=== PATIENT | female | born 1955 | race Caucasian/White ===

== ENCOUNTER → 2018-06-02 12:42 | Outpatient (CLI) | payer OTHER, SELFPAY | PROVIDERS: Family Provider Physician Assistant; PCP Physician Assistant; Visit Provider Physician Assistant | DX: M85.852 Other specified disorders of bone density and structure, left thigh (principal); Z78.0 Asymptomatic menopausal state; E28.39 Other primary ovarian failure; E07.9 Disorder of thyroid, unspecified | CPT/HCPCS: 77080 ==

== ENCOUNTER → 2018-11-13 08:36 | Outpatient (CLI) | payer OTHER, SELFPAY ==
--- NOTE | 2018-11-13 08:38 | DI.MRI.S_ITS ---
PROCEDURE: MR LUMBAR SPINE WO CON INDICATIONS: Right low back pain with radiculopathy on right TECHNIQUE: Noncontrast sagittal T1 spin echo and T2 fast echo, sagittal STIR, axial T1 and T2 fast spin echo through the lumbar spine. In cases with scoliosis, additional coronal T2 fast spin echo may be performed. COMPARISON: None. FINDINGS: Image quality: Excellent. Alignment and Curvature: No plain films are available for comparison, for numbering purposes. Thus, for the purposes of this examination, 5 lumbar type vertebral bodies will be presumed, as denoted on the montage panel. This should be confirmed and correlated with plain films, prior to any lumbar spinal intervention.There is normal bony alignment. Bone Marrow: Marrow is of normal overall signal. No acute vertebral body compression fractures. Spinal Cord: Conus medullaris terminates at the lower L1 level. Visualized cord demonstrates normal signal and size. Paraspinous Soft Tissues: No paravertebral masses. L1-L2: Normal appearance. L2-L3: Mild disc desiccation. Mild diffuse disc bulge. Mild facet and ligamentum flavum hypertrophy. Mild epidural lipomatosis. Mild canal stenosis. No foraminal stenosis. L3-L4: Mild disc desiccation. Mild diffuse disc bulge. Mild facet and ligamentum flavum hypertrophy. Mild epidural lipomatosis. Mild canal stenosis. Mild subarticular foraminal stenosis bilaterally. L4-L5: Mild disc desiccation. Mild diffuse disc bulge. Mild facet and ligamentum flavum hypertrophy. Mild epidural lipomatosis. Mild canal stenosis. Mild subarticular foraminal stenosis bilaterally. L5-S1: Mild disc desiccation. Mild diffuse disc bulge with superimposed broad-based small left posterior lateral protrusion. Mild facet and ligament flavum hypertrophy bilaterally. Mild canal stenosis. Mild bilateral foraminal stenosis. The disc protrusion abuts the left S1 nerve root within the lateral recess, but does not appear to compress it, nor deviate it. IMPRESSION: 1. Multilevel degenerative disc and facet disease, as well as ligamentum flavum hypertrophy and epidural lipomatosis. 2. 5 lumbar type vertebral bodies were presumed for the current report. Plain films of the lumbar spine are recommended for confirmation, prior to any lumbar spinal intervention. 3. Mild multilevel canal and foraminal stenoses. 4. L5-S1 disc protrusion which abuts the left S1 nerve root, but does not appear to compress it, nor deviate it. Recommend correlation with clinical symptoms to ascertain relevance of this finding. Dictated by: Meka Sultana M.D. on 11/15/2018 at 11:25 Approved by: Meka Sultana M.D. on 11/15/2018 at 11:30
== END ==
PROVIDERS: Family Provider Physical Medicine & Rehabilitation; PCP Physician Assistant; Visit Provider Physician Assistant
DX: M51.16 Intervertebral disc disorders with radiculopathy, lumbar region (principal); M51.17 Intervertebral disc disorders with radiculopathy, lumbosacral region; M48.061 Spinal stenosis, lumbar region without neurogenic claudication; M48.07 Spinal stenosis, lumbosacral region; E88.2 Lipomatosis, not elsewhere classified
CPT/HCPCS: 72148

== ENCOUNTER → 2018-11-26 06:53 | Outpatient (CLI) | payer OTHER, SELFPAY ==
[2018-11-26 08:28] LABS: Alanine Aminotransferase 17 IU/L (9-52); Albumin 3.9 g/dL (3.5-5.0); Albumin Globulin Ratio 1.3 (1.0-2.8); Alkaline Phosphatase 41 U/L (38-126); Aspartate Aminotransferase 24 IU/L (14-36); Bilirubin Total 0.6 mg/dL (0.2-1.3); Blood Urea Nitrogen 25 mg/dL (7-17); Calcium 9.1 mg/dL (8.4-10.2); Carbon Dioxide 29 mmol/L (22-32); Chloride 106 mmol/L (98-107); Cholesterol 166 mg/dL (140-199); Estimated Glomerular Filt Rate 55.8 mL/min (>60); Glucose 105 mg/dL (80-110); HDL Cholesterol 47 mg/dL (40-60); HEMOLYSIS < 15 (0-50); LDL Cholesterol Calculated 97 mg/dL (<100); Potassium 4.5 mmol/L (3.4-5.1); Sodium 141 mmol/L (137-145); Total Protein 6.9 g/dL (6.3-8.2); Triglycerides 110 mg/dL (35-150)
[2018-11-26 08:53] LABS: Thyroid Stimulating Hormone 2.46 uIU/mL (0.47-4.68)
== END ==
PROVIDERS: Family Provider Physical Medicine & Rehabilitation; PCP Physician Assistant; Visit Provider Physician Assistant
DX: Z00.00 Encounter for general adult medical examination without abnormal findings (principal); E03.9 Hypothyroidism, unspecified
CPT/HCPCS: 36415; 80053; 80061; 84443

== ENCOUNTER → 2019-01-20 08:08 | Outpatient (CLI) | payer OTHER, SELFPAY ==
--- NOTE | 2019-01-20 08:09 | DI.MG.S_ITS ---
BILATERAL DIGITAL SCREENING MAMMOGRAM 3D/2D WITH CAD: 01/20/2019 CLINICAL: Routine screening. Family history of breast cancer. Comparison is made to exams dated: 06/06/2017 mammogram, 05/13/2016 mammogram, and 08/04/2014 mammogram - [facility]. The tissue of both breasts is heterogeneously dense. This may lower the sensitivity of mammography. Current study was also evaluated with a Computer Aided Detection (CAD) system. No significant masses, calcifications, or other findings are seen in either breast. There has been no significant interval change. IMPRESSION: NEGATIVE There is no mammographic evidence of malignancy. A 1 year screening mammogram is recommended. This exam was interpreted at Station ID: [id number]. NOTE: For mammograms, a report in lay terms will be sent to the patient. Approximately 15% of breast malignancies will not be visualized mammographically. In the management of a palpable breast mass, a negative mammogram must not discourage biopsy of a clinically suspicious lesion. Electronically Signed By: Rhea pearson/donn:01/20/2019 11:10:55 letter sent: Normal Exam ACR BI-RADS Category 1: Negative 3341F
== END ==
PROVIDERS: Family Provider Physical Medicine & Rehabilitation; PCP Physician Assistant; Visit Provider Physician Assistant
DX: Z12.31 Encounter for screening mammogram for malignant neoplasm of breast (principal); Z80.3 Family history of malignant neoplasm of breast
CPT/HCPCS: 77063; 77067

== ENCOUNTER → 2020-03-08 16:04 | Outpatient (CLI) | payer MEDICARE, SELFPAY ==
[2020-03-08] MEDS: COVID-19 VACC #1, MRNA(MOD) 100 MCG/0.5 ML VIAL IM (16:10)
== END ==
PROVIDERS: Family Provider Physical Medicine & Rehabilitation; PCP Family Medicine; Visit Provider Internal Medicine
DX: Z23 Encounter for immunization (principal)
CPT/HCPCS: 0011A; 91301

== ENCOUNTER → 2020-03-15 10:38 | Outpatient (CLI) | payer MEDICARE, SELFPAY ==
--- NOTE | 2020-03-15 | DI.MG.S_ITS ---
BILATERAL DIGITAL SCREENING MAMMOGRAM 3D/2D WITH CAD: 03/15/2020 CLINICAL: Routine screening. Family history of breast cancer. Comparison is made to exams dated: 01/20/2019 mammogram, 06/06/2017 mammogram, and 05/13/2016 mammogram - [facility]. The tissue of both breasts is heterogeneously dense. This may lower the sensitivity of mammography. Current study was also evaluated with a Computer Aided Detection (CAD) system. No significant masses, calcifications, or other findings are seen in either breast. There has been no significant interval change. IMPRESSION: NEGATIVE There is no mammographic evidence of malignancy. A 1 year screening mammogram is recommended. This exam was interpreted at Station ID: [id number]. NOTE: For mammograms, a report in lay terms will be sent to the patient. Approximately 15% of breast malignancies will not be visualized mammographically. In the management of a palpable breast mass, a negative mammogram must not discourage biopsy of a clinically suspicious lesion. Electronically Signed By: Morales ogden/donn:03/15/2020 11:50:42 letter sent: Normal Exam ACR BI-RADS Category 1: Negative 3341F
== END ==
PROVIDERS: Family Provider Physical Medicine & Rehabilitation; PCP Family Medicine; Referring Provider Family Medicine; Visit Provider Family Medicine
DX: Z12.31 Encounter for screening mammogram for malignant neoplasm of breast (principal); Z80.3 Family history of malignant neoplasm of breast
CPT/HCPCS: 77063; 77067

== ENCOUNTER → 2020-04-05 15:56 | Outpatient (CLI) | payer MEDICARE, SELFPAY ==
[2020-04-05] MEDS: COVID-19 VACC #2, MRNA(MOD) 100 MCG/0.5 ML VIAL IM (15:59)
== END ==
PROVIDERS: Family Provider Physical Medicine & Rehabilitation; PCP Family Medicine; Visit Provider Internal Medicine
DX: Z23 Encounter for immunization (principal)
CPT/HCPCS: 0012A; 91301

== ENCOUNTER → 2020-06-08 10:30 | Outpatient (CLI) | payer MEDICARE, OTHER, SELFPAY ==
--- NOTE | 2020-06-08 10:32 | DI.RAD.S_ITS ---
PROCEDURE: XR SOFT TISSUE NECK INDICATIONS: chronic neck pain TECHNIQUE: 2 views of the neck were acquired. COMPARISON: None. FINDINGS: Airway: The airway appears patent. Soft tissues: Prevertebral soft tissues are normal in thickness. The epiglottis and aryepiglottic folds appear normal. No soft tissue gas. Bones: No suspicious bony lesions. Visualized cervical spine is normally aligned. IMPRESSION: Soft tissues of the neck show no evidence of adjacent mass, air-fluid level or evidence of epiglottic soft tissue thickening. Note is made of moderately severe C5-6 degenerative disc disease with slight retrolisthesis at this level. No trauma found. Dictated by: Bhavesh France M.D. on 06/08/2020 at 12:42 Approved by: Bhavesh France M.D. on 06/08/2020 at 12:42
== END ==
PROVIDERS: Family Provider Physical Medicine & Rehabilitation; PCP Family Medicine; Referring Provider Family Medicine; Visit Provider Family Medicine
DX: M50.322 Other cervical disc degeneration at C5-C6 level (principal); G89.29 Other chronic pain
CPT/HCPCS: 70360

== ENCOUNTER → 2020-07-04 16:05 | Outpatient (CLI) | payer MEDICARE, OTHER, SELFPAY ==
--- NOTE | 2020-07-04 16:10 | DI.MRI.S_ITS ---
PROCEDURE: MR CERVICAL SPINE WO CON INDICATIONS: Chronic neck pain TECHNIQUE: Noncontrast sagittal T1 spin echo and T2 fast spin echo, sagittal STIR, foraminal oblique sagittal T2 fast spin echo, and axial gradient echo or T2 fast spin echo through the cervical spine. COMPARISON: None. FINDINGS: Image quality: Excellent. Alignment and Curvature: There is normal bony alignment. Bone Marrow: Marrow demonstrates normal overall signal. Spinal Cord: Visualized spinal cord has normal size and signal. No cerebellar tonsillar herniation. Paraspinous Soft Tissues: No paravertebral masses. Prevertebral soft tissues are normal in thickness. C2-C3: Normal appearance. C3-C4: Normal appearance. C4-C5: Normal appearance. C5-C6: Mild disc space narrowing and posterior disc osteophyte complex combines with hypertrophic uncovertebral joints. No central stenosis. Moderate bilateral foraminal stenosis noted. C6-C7: Moderate disc space narrowing with circumferential disc osteophyte complex results in mild central stenosis. No cord deformation or edema. Hypertrophic uncovertebral joints result in moderate right and no left foraminal stenosis. C7-T1: Normal appearance. IMPRESSION: Multilevel degenerative disc disease and arthropathy results in foraminal stenosis at C5-6 and C6-7 Dictated by: Ravinder López M.D. on 07/04/2020 at 17:31 Approved by: Ravinder López M.D. on 07/04/2020 at 17:37
== END ==
PROVIDERS: Family Provider Physical Medicine & Rehabilitation; PCP Family Medicine; Referring Provider Family Medicine; Visit Provider Family Medicine
DX: M50.322 Other cervical disc degeneration at C5-C6 level (principal); M48.02 Spinal stenosis, cervical region; G89.29 Other chronic pain
CPT/HCPCS: 72141

== ENCOUNTER → 2020-09-13 19:22 | Outpatient (CLI) | payer MEDICARE, OTHER, SELFPAY ==
[2020-09-13 20:16] LABS: COVID19 -Nasal RAPID Negative (Negative)
== END ==
PROVIDERS: Family Provider Physical Medicine & Rehabilitation; PCP Family Medicine; Referring Provider Physician Assistant; Visit Provider Physician Assistant
DX: Z20.822 Contact with and (suspected) exposure to COVID-19 (principal)
CPT/HCPCS: 87635

== ENCOUNTER → 2020-10-01 14:28 | Outpatient (CLI) | payer MEDICARE, OTHER, SELFPAY ==
--- NOTE | 2020-10-01 14:30 | DI.US.S_ITS ---
PROCEDURE: US PELVIC COMPLETE INDICATIONS: postmenopausal bleeding TECHNIQUE: Real-time scanning was performed of the pelvic organs, with image documentation. Additional endovaginal scanning was necessary due to incomplete visualization of the adnexal and endometrial structures by transabdominal scanning. COMPARISON: [facility], US, PELVIC COMPLETE, 11/07/2016, 8:30. FINDINGS: Uterus: Retroverted uterus measures 6.6 x 5.2 x 4.6 cm in size. The endometrium measures 16 mm in combined thickness. No discrete endometrial mass or fluid is seen. 1.5 x 1.3 x 1.5 cm subserosal/intramural fibroid in right anterior myometrium is seen. Ovaries: Right ovary measures 2.7 x 1.3 x 1.7 cm in size. Left ovary measures 2.3 x 1.2 x 1.2 cm in size. No gross solid appearing ovarian lesion. 9 x 5 x 11 mm cyst is seen in right ovary. Normal blood flow is seen in bilateral ovaries on color Doppler images. Other: No pathologic free abdominal or pelvic fluid. IMPRESSION: 1. Thickened endometrium, no discrete endometrial mass or fluid is seen. Finding may represent endometrial hyperplasia. PIE FILLER correlation is recommended. 2. Small uterine fibroid as above. 3. Simple cyst in right ovary. No gross solid appearing ovarian lesion or ovarian torsion. Dictated by: Walker Chávez M.D. on 10/01/2020 at 15:08 Approved by: Walker Chávez M.D. on 10/01/2020 at 15:23
== END ==
PROVIDERS: Family Provider Physical Medicine & Rehabilitation; PCP Family Medicine; Referring Provider Family Medicine; Visit Provider Family Medicine
DX: N95.0 Postmenopausal bleeding (principal); D25.9 Leiomyoma of uterus, unspecified; R93.89 Abnormal findings on diagnostic imaging of other specified body structures; N83.291 Other ovarian cyst, right side
CPT/HCPCS: 76856

== ENCOUNTER → 2020-12-18 14:23 | Outpatient (CLI) | payer MEDICARE, OTHER, SELFPAY ==
[2020-12-18 16:19] LABS: Progesterone, Total 7.94 ng/mL
[2020-12-18 16:36] LABS: Estradiol, Total 48.3 pg/mL
== END ==
PROVIDERS: Family Provider Physical Medicine & Rehabilitation; PCP Family Medicine; Referring Provider Obstetrics & Gynecology; Visit Provider Obstetrics & Gynecology
DX: N95.1 Menopausal and female climacteric states (principal)
CPT/HCPCS: 36415; 82670; 84144

== ENCOUNTER → 2021-03-19 08:45 | Outpatient (CLI) | payer MEDICARE, OTHER, SELFPAY ==
--- NOTE | 2021-03-19 08:47 | DI.US.S_ITS ---
LIMITED ULTRASOUND OF LEFT BREAST: 03/19/2021 CLINICAL: Palpable left breast lump. Comparison is made to exams dated: 03/19/2021 mammogram, 03/15/2020 mammogram, 01/20/2019 mammogram, 06/06/2017 mammogram, and 05/13/2016 mammogram - [facility]. Color flow ultrasound of the left breast 1-2 o'clock region was performed. Sampson scale images of the real-time examination were reviewed. There is a 0.7 cm x 0.6 cm x 0.3 cm oval cyst with a smooth internal wall in the left breast at 2 o'clock posterior depth 3 cm from the nipple. This oval cyst is hypoechoic with posterior acoustic enhancement. This correlates as palpated. Color flow imaging demonstrates that there is no vascularity present. There also is a 0.3 cm x 0.4 cm x 0.2 cm oval cyst with a smooth internal wall in the left breast at 2 o'clock posterior depth 7 cm from the nipple. This oval cyst is hypoechoic with posterior acoustic enhancement. This correlates as palpated. Color flow imaging demonstrates that there is no vascularity present. IMPRESSION: PROBABLY BENIGN The 0.7 cm x 0.6 cm x 0.3 cm oval cyst in the left breast at 2 o'clock posterior depth most likely is a complicated cyst and is probably benign. The 0.3 cm x 0.4 cm x 0.2 cm oval cyst in the left breast at 2 o'clock posterior depth most likely is a complicated cyst and is probably benign. There is no abnormality seen in the left breast to correspond with the palpable abnormality at 1 o'clock, however, clinical followup is recommended. A follow-up left ultrasound in 6 months is recommended to demonstrate stability. This exam was interpreted at Station ID: [id number]. Electronically Signed By: Morales ogden/donn:03/19/2021 10:36:16 letter sent: Followup Recommended Ultrasound BI-RADS: 3 Probably benign
--- NOTE | 2021-03-19 08:47 | DI.MG.S_ITS ---
BILATERAL DIGITAL DIAGNOSTIC MAMMOGRAM 3D/2D: 03/19/2021 CLINICAL: Left breast lumps. Comparison is made to exams dated: 03/15/2020 mammogram, 01/20/2019 mammogram, and 06/06/2017 mammogram - [facility]. The tissue of both breasts is heterogeneously dense. This may lower the sensitivity of mammography. No significant masses, calcifications, or other findings are seen in either breast. IMPRESSION: INCOMPLETE: NEEDS ADDITIONAL IMAGING EVALUATION There is no abnormality seen in the left breast to correspond with the patient-indicated palpable abnormalities in the upper outer quadrant. Targeted ultrasound is recommended for further evaluation, which will be performed immediately following this exam. This exam was interpreted at Station ID: [id number]. NOTE: For mammograms, a report in lay terms will be sent to the patient. Approximately 15% of breast malignancies will not be visualized mammographically. In the management of a palpable breast mass, a negative mammogram must not discourage biopsy of a clinically suspicious lesion. Electronically Signed By: Morales Roman M.D. ar/:03/19/2021 10:33:04 ACR BI-RADS Category 0: Incomplete 3340F
== END ==
PROVIDERS: Family Provider Physical Medicine & Rehabilitation; PCP Family Medicine; Referring Provider Family Medicine; Visit Provider Family Medicine
DX: R92.2 Inconclusive mammogram (principal); N60.02 Solitary cyst of left breast
CPT/HCPCS: 76642; 77066; G0279

== ENCOUNTER → 2021-05-20 12:29 | Outpatient (CLI) | payer MEDICARE, OTHER, SELFPAY ==
--- NOTE | 2021-05-20 12:31 | DI.US.S_ITS ---
PROCEDURE: US PELVIC COMPLETE INDICATIONS: ENDOMETRIAL THICKNESS TECHNIQUE: Real-time scanning was performed of the pelvic organs, with image documentation. Additional endovaginal scanning was necessary due to incomplete visualization of the adnexal and endometrial structures by transabdominal scanning. COMPARISON: [facility], US, US PELVIC COMPLETE, 12/17/2020, 8:44. FINDINGS: Uterus: Uterus is retroverted and normal in size at 6.1 x 5.1 x 5.3 cm. The myometrium is heterogeneous. The endometrium measures 6.8 mm combined thickness. Ovoid hypoechoic lesion in the right anterior aspect of the uterus, measuring 2.1 x 1.7 x 2.2 cm, most consistent with a subserosal fibroid. Ovaries: The right ovary measures 1.9 x 1.2 x 2.4 cm. A hypoechoic lesion is seen within the right ovary, measuring up to 1.3 cm, most consistent with a simple cyst. The left ovary measures 2.3 x 0.9 x 2.1 cmcc. The ovaries have a normal sonographic appearance. Less than 12 follicles can be seen in each ovary. No adnexal masses are seen. Other: No pathologic free abdominal or pelvic fluid. IMPRESSION: 1. Myomatous change of the uterus. 2. Simple appearing cyst in the right ovary. We strive to produce accurate, complete, and clear reports of imaging services. To assist us in improving patient care, this report was composed using standard report templates and voice recognition software. Therefore, it may contain abnormal punctuation, insertions and/or omissions. Occasional wrong-word or sound-alike substitutions may occur. Though we review the report and make efforts to correct it, we do recommend that the report be read carefully in proper context to recognize any text inaccuracies. Dictated by: Chung Montesinos M.D. on 05/20/2021 at 14:02 Approved by: Chung Montesinos M.D. on 05/20/2021 at 14:04
== END ==
PROVIDERS: Family Provider Physical Medicine & Rehabilitation; PCP Family Medicine; Referring Provider Obstetrics & Gynecology; Visit Provider Obstetrics & Gynecology
DX: N95.0 Postmenopausal bleeding (principal); N85.00 Endometrial hyperplasia, unspecified; N83.201 Unspecified ovarian cyst, right side
CPT/HCPCS: 76830; 76856

== ENCOUNTER → 2021-12-02 14:19 | Outpatient (CLI) | payer MEDICARE, OTHER, SELFPAY ==
--- NOTE | 2021-12-02 14:22 | DI.US.S_ITS ---
ULTRASOUND OF LEFT BREAST: 12/02/2021 CLINICAL: 6 month follow-up of cysts. Comparison is made to exams dated: 03/19/2021 ultrasound, 03/19/2021 mammogram, 03/15/2020 mammogram, and 01/20/2019 mammogram - [facility]. Color flow and real-time ultrasound of the left breast were performed. Sampson scale images of the real-time examination were reviewed. There is a 0.7 cm x 0.6 cm x 0.3 cm oval cyst with a smooth internal wall in the left breast at 2 o'clock posterior depth 3 cm from the nipple. This oval cyst is hypoechoic with posterior acoustic enhancement. This abnormality is not significantly changed and correlates as palpated. Color flow imaging demonstrates that there is no vascularity present. There also is a 0.4 cm x 0.4 cm x 0.2 cm oval cyst with a smooth internal wall in the left breast at 2 o'clock posterior depth 7 cm from the nipple. This oval cyst is hypoechoic with posterior acoustic enhancement. This abnormality is not significantly changed and correlates as palpated. Color flow imaging demonstrates that there is no vascularity present. IMPRESSION: PROBABLY BENIGN The 0.7 cm x 0.6 cm x 0.3 cm oval cyst in the left breast at 2 o'clock posterior depth most likely is a complicated cyst and is probably benign. The 0.4 cm x 0.4 cm x 0.2 cm oval cyst in the left breast at 2 o'clock posterior depth most likely is a complicated cyst and is probably benign. Of note, the patient is slightly off schedule for her mammogram as it will be due approximately 4 months from now, but an ultrasound is due in approximately 6 months. A follow-up bilateral mammogram and a left ultrasound in 4-6 months is recommended. Findings and recommendations were conveyed to the patient during today's evaluation. This exam was interpreted at Station ID: [id number]. Electronically Signed By: Sebastián Chiang M.D. aty/:12/02/2021 15:29:23 letter sent: Followup Recommended Ultrasound BI-RADS: 3 Probably benign
== END ==
PROVIDERS: Family Provider Physical Medicine & Rehabilitation; PCP Family Medicine; Referring Provider Family Medicine; Visit Provider Family Medicine
DX: N60.02 Solitary cyst of left breast (principal); R92.8 Other abnormal and inconclusive findings on diagnostic imaging of breast
CPT/HCPCS: 76642

== ENCOUNTER → 2022-04-25 10:16 | Outpatient (CLI) | payer MEDICARE, OTHER, SELFPAY ==
--- NOTE | 2022-04-25 10:19 | DI.MG.S_ITS ---
BILATERAL DIGITAL DIAGNOSTIC MAMMOGRAM 3D/2D: 04/25/2022 CLINICAL: Patient returns for a 6 month follow up of the left breast, due for bilateral exam. Comparison is made to exams dated: 03/19/2021 mammogram, 03/15/2020 mammogram, 01/20/2019 mammogram, and 06/06/2017 mammogram - [facility]. Both breasts are heterogeneously dense, which may obscure small masses (category c / 51-75% glandular tissue). No significant masses, calcifications, or other findings are seen in either breast. No mammographic correlate to the subcentimeter complicated cysts seen in the left breast 2:00 position by ultrasound only. No developing asymmetry to correlate to the patient's previous palpable abnormalities. Mammograms are otherwise stable. IMPRESSION: INCOMPLETE: NEEDS ADDITIONAL IMAGING EVALUATION There is no abnormality seen in the left breast to correspond with the ultrasound findings at 2 o'clock. Ultrasound is recommended for full evaluation of this area. This was performed immediately following this exam. Mammograms are stable. Based on the Tyrer Cuzick model (a risk assessment model) the patient's lifetime risk is 16.5% and her 10 year risk is 9.1%. According to the ACR, ACS, and NCCN guidelines, an annual breast MRI exam along with mammogram is recommended if the patient's lifetime risk is 20% or greater. This exam was interpreted at Station ID: [id number]. NOTE: For mammograms, a report in lay terms will be sent to the patient. Approximately 15% of breast malignancies will not be visualized mammographically. In the management of a palpable breast mass, a negative mammogram must not discourage biopsy of a clinically suspicious lesion. Electronically Signed By: Rhea pearson/:04/25/2022 11:01:28 ACR BI-RADS Category 0: Incomplete 3340F
--- NOTE | 2022-04-25 10:19 | DI.US.S_ITS ---
LIMITED ULTRASOUND OF LEFT BREAST: 04/25/2022 CLINICAL: Follow-up of cysts. Comparison is made to exams dated: 04/25/2022 mammogram, 12/02/2021 ultrasound, 03/19/2021 ultrasound, and 03/19/2021 mammogram - [facility]. Color flow ultrasound of the left breast 2 o'clock region was performed. Sampson scale images of the real-time examination were reviewed. There is a 0.4 cm x 0.3 cm x 0.2 cm cyst in the left breast at 2 o'clock anterior depth 3 cm from the nipple. This cyst displays posterior acoustic enhancement. This abnormality is decreased in size. Color flow imaging demonstrates that there is no vascularity present. There also is a 0.2 cm x 0.3 cm x 0.2 cm oval cyst in the left breast at 2 o'clock posterior depth 7 cm from the nipple. This oval cyst displays posterior acoustic enhancement. This abnormality is decreased in size. Color flow imaging demonstrates that there is no vascularity present. IMPRESSION: BENIGN There is no sonographic evidence of malignancy. The 0.4 cm cyst in the left breast at 2 o'clock anterior depth has decreased in size, is now consistent with a simple cyst and is benign. The 0.3 cm cyst in the left breast at 2 o'clock posterior depth has decreased in size, is now consistent with a simple cyst and is benign. Return to annual mammogram screening schedule is recommended. Findings and recommendations were conveyed to the patient at time of exam. This exam was interpreted at Station ID: [id number]. Electronically Signed By: Rhea pearson/:04/25/2022 11:41:11 letter sent: Normal Exam Ultrasound BI-RADS: 2 Benign
== END ==
PROVIDERS: Family Provider Family Medicine; PCP Family Medicine; Referring Provider Family Medicine; Visit Provider Family Medicine
DX: N60.02 Solitary cyst of left breast (principal); R92.2 Inconclusive mammogram
CPT/HCPCS: 76642; 77066; G0279

== ENCOUNTER → 2022-07-08 13:41 | Outpatient (CLI) | payer MEDICARE, OTHER, SELFPAY ==
[2022-07-08 14:37] LABS: Add Manual Diff / Slide Review NO; Basophils Absolute Auto 0 /uL (0-100); Basophils Percent Auto 0.7 % (0-2); Eosinophils Absolute Auto 0 /uL (0-450); Eosinophils Percent Auto 0.7 % (2-4); Hematocrit 39.2 % (36-46); Hemoglobin 13.3 g/dL (12.0-16.0); Lymphocytes Absolute Auto 1600 /uL (1100-4500); Lymphocytes Percent Auto 27.4 % (25-40); Mean Corpuscular HGB Conc 33.8 % (30-36); Mean Corpuscular Hemoglobin 32.1 PG (26-34); Mean Corpuscular Volume 94.9 fL (80-100); Monocytes Absolute Auto 400 /uL (0-900); Monocytes Percent Auto 7.6 % (3-14); Neutrophils Absolute Auto 3700 /uL (1500-7000); Neutrophils Percent Auto 63.6 % (50-75); Platelet Count 201 X10^3/uL (150-400); Red Blood Cell Count 4.14 X10^6/uL (4.0-5.2); White Blood Cell Count 5.8 X10^3/uL (4.5-11.0)
[2022-07-08 14:47] LABS: Alanine Aminotransferase 18 IU/L (<35); Albumin 3.9 g/dL (3.5-5.0); Albumin Globulin Ratio 1.3 (1.0-2.8); Alkaline Phosphatase 49 U/L (38-126); Aspartate Aminotransferase 26 IU/L (14-36); Bilirubin Total 0.4 mg/dL (0.2-1.3); Blood Urea Nitrogen 20 mg/dL (7-17); Calcium 8.7 mg/dL (8.4-10.2); Carbon Dioxide 27 mmol/L (22-32); Chloride 104 mmol/L (98-107); Cholesterol 150 mg/dL (140-199); Estimated Glomerular Filt Rate > 60 mL/min (>60); Globulin 3.1 g/dL (1.7-4.1); Glucose 100 mg/dL (80-110); HDL Cholesterol 48 mg/dL (40-60); HEMOLYSIS 20 (0-50); LDL Cholesterol Calculated 76 mg/dL (<100); Potassium 4.5 mmol/L (3.4-5.1); Sodium 136 mmol/L (137-145); Triglycerides 129 mg/dL (35-150)
[2022-07-08 15:22] LABS: TSH w/ Reflex to FT4 1.52 uIU/mL (0.47-4.68)
== END ==
PROVIDERS: Family Provider Family Medicine; PCP Family Medicine; Referring Provider Family Medicine; Visit Provider Family Medicine
DX: E03.9 Hypothyroidism, unspecified (principal); N95.0 Postmenopausal bleeding; Z13.220 Encounter for screening for lipoid disorders
CPT/HCPCS: 36415; 80053; 80061; 84443; 85025

== ENCOUNTER 2022-07-16 13:30 | Outpatient (RCR) | payer MEDICARE, OTHER, SELFPAY ==
--- NOTE | 2022-05-13 10:02 | PT.OIE ---
Current Diagnoses Mixed incontinence (05/13/22) Past Medical History (Last Updated 03/25/22 @ 15:45 by Rafael Zavaleta DO) Abnormal Pap smear of cervix Actinic keratosis (~1999) Acute pain of left hip Acute pain of left shoulder Bilateral knee pain Body posture problem Breast lump on left side at 3 o'clock position Cervical somatic dysfunction Chicken pox Chronic back pain Chronic neck pain Chronic pain in right shoulder Chronic right-sided low back pain without sciatica Cranial somatic dysfunction Eczema Facet arthropathy, lumbosacral Genital warts Headache Hearing loss Hemorrhoid (~1989) History of urinary incontinence (~1992) Iliotibial band syndrome of left side Iliotibial band syndrome, right leg Low testosterone Lumbar region somatic dysfunction Measles Mixed urge and stress incontinence Mumps Osteopenia Pelvic somatic dysfunction Recurrent sinusitis (~2009) Sacral region somatic dysfunction Segmental and somatic dysfunction of abdomen and other regions Segmental and somatic dysfunction of rib cage Shoulder pain Somatic dysfunction of lower extremity Strain of gluteus medius of right lower extremity Subconjunctival hemorrhage of left eye Tension headache Thoracic region somatic dysfunction Upper extremity somatic dysfunction Vertigo (~2019) Yawning Past Surgical History (Last Updated 03/26/22 @ 10:18 by Roberta Klein MA) History of oral surgery (~2009) Hx of oral surgery (~02/2022) Status post loop electrosurgical excision procedure (LEEP) of cervix Visit Care Team Role Provider Type Rafael Zavaleta DO Attending Provider Physician Family Provider Primary Care Provider Referring Provider Specialty: [facility] Practice Address: [address] [place] [address] Email: Physical Therapy Initial Evaluation PT-OP-A Visit Information Start: 05/12/22 16:22 Freq: Status: Active Protocol: Document 05/13/22 07:30 AMB (Rec: 05/13/22 08:15 AMB [id number]) Out-Patient Physical Therapy Visit Information Visit Information Visit Type Initial Evaluation Visit Start Time 07:30 Visit Stop Time 08:15 Total Visit Minutes 45 Visit Number 1 PT-OP-B Current Condition Start: 05/12/22 16:22 Freq: Status: Active Protocol: Document 05/13/22 07:30 AMB (Rec: 05/13/22 08:15 AMB [id number]) Current Condition History of Current Condition Onset Date chronic Current Complaints Stress urinary incontinence History of Current Condition Leaking for a long time, getting worse. Has been doing kegels and that is helpful. If the bladder is full and then moves from sit to stand that can make her leak. Small to medium leaks. No caffeine . Cough, sneeze can also cause leaking. 2 children, prolonged pushing with the first, both vaginal deliveries . On hormone replacement therapy currently but considering getting off. PT-OP-I Pelvic Floor Start: 05/12/22 16:22 Freq: Status: Active Protocol: Document 05/13/22 07:30 AMB (Rec: 05/13/22 11:57 AMB [id number]) Pelvic Floor Assessment Urine Pelvic Floor Surgery No Leakage Size Small Leakage Cause Cough,Exercise,Sneeze Voiding Frequency 1-3 hrs Urine Pad Type Panty Liner Prolapse Rectocele Grade 2 Contraction Ability Voluntary Contraction Moderate Voluntary Relaxation Moderate Manual Muscle Testing Left 3 Manual Muscle Testing Right 3 Manual Muscle Testing Anterior 2 Manual Muscle Testing Posterior 4 Muscle Endurance (Seconds) 8 Number of Quick Contractions In 10 4 Seconds PT-OP-T Assessment and Plan Start: 05/12/22 16:22 Freq: Status: Active Protocol: Document 05/13/22 07:30 AMB (Rec: 05/13/22 08:15 AMB [id number]) Physical Therapy Assessment Rehab Potential Rehabilitation Potential Good Evaluation Complexity Number of Personal Factors/Comorbidities 0 Number of Body Systems Impaired 1-2 Clinical Presentation at Evaluation Stable Impairments Impairments Strength Goals Pelvic floor strength Short Term Goal (STG) Sarah will contract her pelvic floor muscles for 10 seconds in standing. STG Duration 4 Fpc Goal (LTG) Sarah will show improved pelvic floor strength by oemr pelvic floor while moving from sit to stand. LTG Duration 10 One Impairment Continence Short Term Goal (STG) Sarah will cough without leaking urine. STG Duration 4 Grease Remover Goal (LTG) Sarah will move from sit to stand without leaking urine. LTG Duration 10 Assessment Summary Assessment Sarah attends physical therapy with symptoms of stress urinary incontinence that have worsened over the years but recently improved somewhat with pelvic floor strengthening. She was able to appropriately contract her pelvic floor muscles in supine , but struggled more in standing and with movement. She leaks the most when her bladder is full and she moves from sit to stand or coughs. She will benefit from physical therapy to improve her pelvic floor strength and reduce her continence. Physical Therapy Plan Frequency and Duration Frequency of Treatment 1x/Week Duration of treatment (weeks) 10 Plan of Care Start Date 05/13/22 Plan of Care End Date 07/22/22 Therapeutic Interventions Therapeutic Interventions Home Exercise Program,Manual Therapy,Neuromuscular Re- education,Self-Care/Home Management,Therapeutic Activities,Therapeutic Exercises Modalities Biofeedback Next Visit Focus/Plan Next Note Type Treatment Note Next Visit Plan sEMG vs standing HEP progression
--- NOTE | 2022-05-13 10:03 | PT.OPPOC ---
Physical, Occupational & Speech Therapy At [facility] Current Diagnoses Mixed incontinence (05/13/22) Visit Care Team Role Provider Type Rafael Zavaleta DO Attending Provider Physician Family Provider Primary Care Provider Referring Provider Specialty: Family Practice Address: [address] [place] [address], [id number] Email: Plan Of Care PT-OP-T Assessment and Plan Start: 05/12/22 16:22 Freq: Status: Active Protocol: Document 05/13/22 07:30 AMB (Rec: 05/13/22 08:15 AMB [id number]) Physical Therapy Assessment Rehab Potential Rehabilitation Potential Good Evaluation Complexity Number of Personal Factors/Comorbidities 0 Number of Body Systems Impaired 1-2 Clinical Presentation at Evaluation Stable Impairments Impairments Strength Goals Pelvic floor strength Short Term Goal (STG) Sarah will contract her pelvic floor muscles for 10 seconds in standing. STG Duration 4 Biostatistics Manager Goal (LTG) Sarah will show improved pelvic floor strength by omer pelvic floor while moving from sit to stand. LTG Duration 10 One Impairment Continence Short Term Goal (STG) Sarah will cough without leaking urine. STG Duration 4 [facility] Goal (LTG) Sarah will move from sit to stand without leaking urine. LTG Duration 10 Assessment Summary Assessment Sarah attends physical therapy with symptoms of stress urinary incontinence that have worsened over the years but recently improved somewhat with pelvic floor strengthening. She was able to appropriately contract her pelvic floor muscles in supine , but struggled more in standing and with movement. She leaks the most when her bladder is full and she moves from sit to stand or coughs. She will benefit from physical therapy to improve her pelvic floor strength and reduce her continence. Physical Therapy Plan Frequency and Duration Frequency of Treatment 1x/Week Duration of treatment (weeks) 10 Plan of Care Start Date 05/13/22 Plan of Care End Date 07/22/22 Therapeutic Interventions Therapeutic Interventions Home Exercise Program,Manual Therapy,Neuromuscular Re- education,Self-Care/Home Management,Therapeutic Activities,Therapeutic Exercises Modalities Biofeedback Next Visit Focus/Plan Next Note Type Treatment Note Next Visit Plan sEMG vs standing HEP progression Plan of Care Dates Plan of Care Start Date 05/13/22 Plan of Care End Date 07/22/22 Electronically Signed by: Stormy Orourke, PT 05/25/22 1003 If you are in agreement with this Plan of Care, please return a signed and dated copy. I have reviewed this Plan of Care and certify that the skilled therapy services above are required to meet the patient?s needs. Physician Signature Date Printed Name and Credentials Clinical Instructor Signature Printed Name and Credentials
--- NOTE | 2022-06-11 08:17 | PT.OTN ---
Current Diagnoses Mixed incontinence (06/11/22) Physical Therapy Treatment Note PT-OP-A Visit Information Start: 05/12/22 16:22 Freq: Status: Active Protocol: Document 06/11/22 07:32 AMB (Rec: 06/11/22 08:17 AMB [id number]) Out-Patient Physical Therapy Visit Information Visit Information Visit Type Treatment Note Visit Start Time 07:30 Visit Stop Time 08:15 Total Visit Minutes 45 Visit Number 2 PT-OP-B Current Condition Start: 05/12/22 16:22 Freq: Status: Active Protocol: Document 05/13/22 07:30 AMB (Rec: 05/13/22 08:15 AMB [id number]) Current Condition History of Current Condition Onset Date chronic Current Complaints Stress urinary incontinence History of Current Condition Leaking for a long time, getting worse. Has been doing kegels and that is helpful. If the bladder is full and then moves from sit to stand that can make her leak. Small to medium leaks. No caffeine . Cough, sneeze can also cause leaking. 2 children, prolonged pushing with the first, both vaginal deliveries . On hormone replacement therapy currently but considering getting off. PT-OP-C Subjective Start: 05/12/22 16:22 Freq: Status: Active Protocol: Document 06/11/22 07:32 AMB (Rec: 06/11/22 08:17 AMB [id number]) OP-PT Subjective Patient Comments Patient Comments Sarah states she has had one leak, feels like 10 second holds are getting easier. PT-OP-I Pelvic Floor Start: 05/12/22 16:22 Freq: Status: Active Protocol: Document 05/13/22 07:30 AMB (Rec: 05/13/22 11:57 AMB [id number]) Pelvic Floor Assessment Urine Pelvic Floor Surgery No Leakage Size Small Leakage Cause Cough,Exercise,Sneeze Voiding Frequency 1-3 hrs Urine Pad Type Panty Liner Prolapse Rectocele Grade 2 Contraction Ability Voluntary Contraction Moderate Voluntary Relaxation Moderate Manual Muscle Testing Left 3 Manual Muscle Testing Right 3 Manual Muscle Testing Anterior 2 Manual Muscle Testing Posterior 4 Muscle Endurance (Seconds) 8 Number of Quick Contractions In 10 4 Seconds PT-OP-Q Treatments Start: 05/12/22 16:22 Freq: Status: Active Protocol: Document 06/11/22 07:32 AMB (Rec: 06/11/22 08:17 AMB [id number]) Therapeutic Exercises Sitting Exercises roll in/roll out Resistance red Reps/Minutes 10 Standing Exercises sit to stand Reps/Minutes 1x10 long hold Comments cue breath mini squats Standing Exercise Name with long hold Reps/Minutes 10 PT-OP-T Assessment and Plan Start: 05/12/22 16:22 Freq: Status: Active Protocol: Document 06/11/22 07:32 AMB (Rec: 06/11/22 08:17 AMB [id number]) Physical Therapy Assessment Goals Pelvic floor strength Short Term Goal (STG) Sarah will contract her pelvic floor muscles for 10 seconds in standing. STG Duration 4 [facility] Goal (LTG) Sarah will show improved pelvic floor strength by moer pelvic floor while moving from sit to stand. LTG Duration 10 One Impairment Continence Short Term Goal (STG) Sarah will cough without leaking urine. STG Duration 4 Pen[facility]iary Goal (LTG) Sarah will move from sit to stand without leaking urine. LTG Duration 10 Assessment Summary Assessment One leak in the last month. Tolerating strengthening well. Does have some R knee pain that we need to be aware of with sit to stand. Mild squats didn't bother. Physical Therapy Plan Frequency and Duration Frequency of Treatment 1x/Week Duration of treatment (weeks) 10 Plan of Care Start Date 05/13/22 Plan of Care End Date 07/22/22 Therapeutic Interventions Therapeutic Interventions Home Exercise Program,Manual Therapy,Neuromuscular Re- education,Self-Care/Home Management,Therapeutic Activities,Therapeutic Exercises Modalities Biofeedback Next Visit Focus/Plan Next Note Type Treatment Note Next Visit Plan sEMG vs standing HEP progression
--- NOTE | 2022-06-18 15:33 | PT.OTN ---
Current Diagnoses Mixed incontinence (06/18/22) Physical Therapy Treatment Note PT-OP-A Visit Information Start: 05/12/22 16:22 Freq: Status: Active Protocol: Document 06/18/22 14:35 AMB (Rec: 06/18/22 15:33 AMB [id number]) Out-Patient Physical Therapy Visit Information Visit Information Visit Type Treatment Note Visit Start Time 14:30 Visit Stop Time 15:15 Total Visit Minutes 45 Visit Number 3 PT-OP-B Current Condition Start: 05/12/22 16:22 Freq: Status: Active Protocol: Document 05/13/22 07:30 AMB (Rec: 05/13/22 08:15 AMB [id number]) Current Condition History of Current Condition Onset Date chronic Current Complaints Stress urinary incontinence History of Current Condition Leaking for a long time, getting worse. Has been doing kegels and that is helpful. If the bladder is full and then moves from sit to stand that can make her leak. Small to medium leaks. No caffeine . Cough, sneeze can also cause leaking. 2 children, prolonged pushing with the first, both vaginal deliveries . On hormone replacement therapy currently but considering getting off. PT-OP-C Subjective Start: 05/12/22 16:22 Freq: Status: Active Protocol: Document 06/18/22 14:35 AMB (Rec: 06/18/22 15:33 AMB [id number]) OP-PT Subjective Patient Comments Patient Comments Sarah hasn't had any leaking this last week, is doing exercises. PT-OP-I Pelvic Floor Start: 05/12/22 16:22 Freq: Status: Active Protocol: Document 05/13/22 07:30 AMB (Rec: 05/13/22 11:57 AMB [id number]) Pelvic Floor Assessment Urine Pelvic Floor Surgery No Leakage Size Small Leakage Cause Cough,Exercise,Sneeze Voiding Frequency 1-3 hrs Urine Pad Type Panty Liner Prolapse Rectocele Grade 2 Contraction Ability Voluntary Contraction Moderate Voluntary Relaxation Moderate Manual Muscle Testing Left 3 Manual Muscle Testing Right 3 Manual Muscle Testing Anterior 2 Manual Muscle Testing Posterior 4 Muscle Endurance (Seconds) 8 Number of Quick Contractions In 10 4 Seconds PT-OP-Q Treatments Start: 05/12/22 16:22 Freq: Status: Active Protocol: Document 06/18/22 14:35 AMB (Rec: 06/18/22 15:33 AMB [id number]) Therapeutic Exercises Supine Exercises table top Reps/Minutes 1x10 Comments wiht pelvic floor Sitting Exercises t ball Sitting Exercise Name april, [place] Reps/Minutes 2x10 roll in/roll out Resistance red Reps/Minutes 10 Standing Exercises sit to stand Reps/Minutes 1x10 long hold Comments cue breath mini squats Standing Exercise Name with long hold Reps/Minutes 10 Other Exercises quadruped Other Exercise Name UE extension Reps/Minutes 2x10 Comments wiht pelvic floor PT-OP-T Assessment and Plan Start: 05/12/22 16:22 Freq: Status: Active Protocol: Document 06/18/22 14:35 AMB (Rec: 06/18/22 15:33 AMB [id number]) Physical Therapy Assessment Goals Pelvic floor strength Short Term Goal (STG) Sarah will contract her pelvic floor muscles for 10 seconds in standing. STG Duration 4 [place] Goal (LTG) Sarah will show improved pelvic floor strength by omer pelvic floor while moving from sit to stand. LTG Duration 10 One Impairment Continence Short Term Goal (STG) Sarah will cough without leaking urine. STG Duration 4 [place] Goal (LTG) Sarah will move from sit to stand without leaking urine. LTG Duration 10 Assessment Summary Assessment Focus on stress incontinence. Pt tolerated progression of pelvic floor strengthening well. Did well with quadruped and ball exercises. Physical Therapy Plan Frequency and Duration Frequency of Treatment 1x/Week Duration of treatment (weeks) 10 Plan of Care Start Date 05/13/22 Plan of Care End Date 07/22/22 Therapeutic Interventions Therapeutic Interventions Home Exercise Program,Manual Therapy,Neuromuscular Re- education,Self-Care/Home Management,Therapeutic Activities,Therapeutic Exercises Modalities Biofeedback
--- NOTE | 2022-07-02 08:19 | PT.OTN ---
Current Diagnoses Mixed incontinence (07/02/22) Physical Therapy Treatment Note PT-OP-A Visit Information Start: 05/12/22 16:22 Freq: Status: Active Protocol: Document 07/02/22 14:32 AMB (Rec: 07/02/22 15:32 AMB [id number]) Out-Patient Physical Therapy Visit Information Visit Information Visit Type Treatment Note Visit Start Time 14:30 Visit Stop Time 15:15 Total Visit Minutes 45 Visit Number 4 PT-OP-B Current Condition Start: 05/12/22 16:22 Freq: Status: Active Protocol: Document 05/13/22 07:30 AMB (Rec: 05/13/22 08:15 AMB [id number]) Current Condition History of Current Condition Onset Date chronic Current Complaints Stress urinary incontinence History of Current Condition Leaking for a long time, getting worse. Has been doing kegels and that is helpful. If the bladder is full and then moves from sit to stand that can make her leak. Small to medium leaks. No caffeine . Cough, sneeze can also cause leaking. 2 children, prolonged pushing with the first, both vaginal deliveries . On hormone replacement therapy currently but considering getting off. PT-OP-C Subjective Start: 05/12/22 16:22 Freq: Status: Active Protocol: Document 07/02/22 14:32 AMB (Rec: 07/02/22 15:32 AMB [id number]) OP-PT Subjective Patient Comments Patient Comments Pt feeling about the same. PT-OP-I Pelvic Floor Start: 05/12/22 16:22 Freq: Status: Active Protocol: Document 05/13/22 07:30 AMB (Rec: 05/13/22 11:57 AMB [id number]) Pelvic Floor Assessment Urine Pelvic Floor Surgery No Leakage Size Small Leakage Cause Cough,Exercise,Sneeze Voiding Frequency 1-3 hrs Urine Pad Type Panty Liner Prolapse Rectocele Grade 2 Contraction Ability Voluntary Contraction Moderate Voluntary Relaxation Moderate Manual Muscle Testing Left 3 Manual Muscle Testing Right 3 Manual Muscle Testing Anterior 2 Manual Muscle Testing Posterior 4 Muscle Endurance (Seconds) 8 Number of Quick Contractions In 10 4 Seconds PT-OP-Q Treatments Start: 05/12/22 16:22 Freq: Status: Active Protocol: Document 07/02/22 14:00 AMB (Rec: 07/04/22 08:19 AMB [id number]) Therapeutic Exercises Standing Exercises sit to stand Reps/Minutes 1x10 long hold Comments cue breath mini squats Standing Exercise Name with long hold Reps/Minutes 10 PT-OP-T Assessment and Plan Start: 05/12/22 16:22 Freq: Status: Active Protocol: Document 07/02/22 14:32 AMB (Rec: 07/02/22 15:32 AMB [id number]) Physical Therapy Assessment Goals Pelvic floor strength Short Term Goal (STG) Sarah will contract her pelvic floor muscles for 10 seconds in standing. STG Duration 4 Assisted Goal (LTG) Sarah will show improved pelvic floor strength by omer pelvic floor while moving from sit to stand. LTG Duration 10 One Impairment Continence Short Term Goal (STG) Sarah will cough without leaking urine. STG Duration 4 Assisted Goal (LTG) Sarah will move from sit to stand without leaking urine. LTG Duration 10 Assessment Summary Assessment Was able to contract while sneezing and didn't leak. Added pelvic floor exercises with sit to stand and standing to progress challenge. Physical Therapy Plan Frequency and Duration Frequency of Treatment 1x/Week Duration of treatment (weeks) 10 Plan of Care Start Date 05/13/22 Plan of Care End Date 07/22/22 Therapeutic Interventions Therapeutic Interventions Home Exercise Program,Manual Therapy,Neuromuscular Re- education,Self-Care/Home Management,Therapeutic Activities,Therapeutic Exercises Modalities Biofeedback Next Visit Focus/Plan Next Note Type Treatment Note Next Visit Plan standing HEP progression
--- NOTE | 2022-07-16 15:22 | PT.OTN ---
Current Diagnoses Mixed incontinence (07/16/22) Physical Therapy Treatment Note PT-OP-A Visit Information Start: 05/12/22 16:22 Freq: Status: Active Protocol: Document 07/16/22 13:34 AMB (Rec: 07/16/22 14:14 AMB [id number]) Out-Patient Physical Therapy Visit Information Visit Information Visit Type Treatment Note Visit Start Time 13:30 Visit Stop Time 14:00 Total Visit Minutes 30 Visit Number 5 PT-OP-B Current Condition Start: 05/12/22 16:22 Freq: Status: Active Protocol: Document 05/13/22 07:30 AMB (Rec: 05/13/22 08:15 AMB [id number]) Current Condition History of Current Condition Onset Date chronic Current Complaints Stress urinary incontinence History of Current Condition Leaking for a long time, getting worse. Has been doing kegels and that is helpful. If the bladder is full and then moves from sit to stand that can make her leak. Small to medium leaks. No caffeine . Cough, sneeze can also cause leaking. 2 children, prolonged pushing with the first, both vaginal deliveries . On hormone replacement therapy currently but considering getting off. PT-OP-C Subjective Start: 05/12/22 16:22 Freq: Status: Active Protocol: Document 07/16/22 13:34 AMB (Rec: 07/16/22 14:14 AMB [id number]) OP-PT Subjective Patient Comments Patient Comments Pt feels ready to be independent with an exercise program. PT-OP-I Pelvic Floor Start: 05/12/22 16:22 Freq: Status: Active Protocol: Document 05/13/22 07:30 AMB (Rec: 05/13/22 11:57 AMB [id number]) Pelvic Floor Assessment Urine Pelvic Floor Surgery No Leakage Size Small Leakage Cause Cough,Exercise,Sneeze Voiding Frequency 1-3 hrs Urine Pad Type Panty Liner Prolapse Rectocele Grade 2 Contraction Ability Voluntary Contraction Moderate Voluntary Relaxation Moderate Manual Muscle Testing Left 3 Manual Muscle Testing Right 3 Manual Muscle Testing Anterior 2 Manual Muscle Testing Posterior 4 Muscle Endurance (Seconds) 8 Number of Quick Contractions In 10 4 Seconds PT-OP-Q Treatments Start: 05/12/22 16:22 Freq: Status: Active Protocol: Document 07/02/22 14:00 AMB (Rec: 07/04/22 08:19 AMB [id number]) Therapeutic Exercises Standing Exercises sit to stand Reps/Minutes 1x10 long hold Comments cue breath mini squats Standing Exercise Name with long hold Reps/Minutes 10 PT-OP-T Assessment and Plan Start: 05/12/22 16:22 Freq: Status: Active Protocol: Document 07/16/22 13:34 AMB (Rec: 07/16/22 14:14 AMB [id number]) Physical Therapy Assessment Goals Pelvic floor strength Short Term Goal (STG) Sarah will contract her pelvic floor muscles for 10 seconds in standing. STG Duration MET Sleeve Maker Goal (LTG) Sarah will show improved pelvic floor strength by omer pelvic floor while moving from sit to stand. LTG Duration MET One Impairment Continence Short Term Goal (STG) Sarah will cough without leaking urine. STG Duration MET Sleeve Maker Goal (LTG) Sarah will move from sit to stand without leaking urine. LTG Duration MET Assessment Summary Assessment Nocturia is usually around 1x/ night. Overall Sarah feels ready for discharge. She can move from sit to stand without leaking and can cough without leaking. She is independent with her HEP and ready for discharge. Physical Therapy Plan Frequency and Duration Frequency of Treatment 1x/Week Duration of treatment (weeks) 10 Plan of Care Start Date 05/13/22 Plan of Care End Date 07/22/22 Therapeutic Interventions Therapeutic Interventions Home Exercise Program,Manual Therapy,Neuromuscular Re- education,Self-Care/Home Management,Therapeutic Activities,Therapeutic Exercises Modalities Biofeedback Next Visit Focus/Plan Next Note Type Treatment Note Next Visit Plan standing HEP progression
--- NOTE | 2022-07-16 15:27 | PT.OTN ---
Current Diagnoses Mixed incontinence (07/16/22) Physical Therapy Treatment Note PT-OP-A Visit Information Start: 05/12/22 16:22 Freq: Status: Active Protocol: Document 07/16/22 13:34 AMB (Rec: 07/16/22 14:14 AMB [id number]) Out-Patient Physical Therapy Visit Information Visit Information Visit Type Treatment Note Visit Start Time 13:30 Visit Stop Time 14:00 Total Visit Minutes 30 Visit Number 5 PT-OP-B Current Condition Start: 05/12/22 16:22 Freq: Status: Active Protocol: Document 05/13/22 07:30 AMB (Rec: 05/13/22 08:15 AMB [id number]) Current Condition History of Current Condition Onset Date chronic Current Complaints Stress urinary incontinence History of Current Condition Leaking for a long time, getting worse. Has been doing kegels and that is helpful. If the bladder is full and then moves from sit to stand that can make her leak. Small to medium leaks. No caffeine . Cough, sneeze can also cause leaking. 2 children, prolonged pushing with the first, both vaginal deliveries . On hormone replacement therapy currently but considering getting off. PT-OP-C Subjective Start: 05/12/22 16:22 Freq: Status: Active Protocol: Document 07/16/22 13:34 AMB (Rec: 07/16/22 14:14 AMB [id number]) OP-PT Subjective Patient Comments Patient Comments Pt feels ready to be independent with an exercise program. PT-OP-I Pelvic Floor Start: 05/12/22 16:22 Freq: Status: Active Protocol: Document 05/13/22 07:30 AMB (Rec: 05/13/22 11:57 AMB [id number]) Pelvic Floor Assessment Urine Pelvic Floor Surgery No Leakage Size Small Leakage Cause Cough,Exercise,Sneeze Voiding Frequency 1-3 hrs Urine Pad Type Panty Liner Prolapse Rectocele Grade 2 Contraction Ability Voluntary Contraction Moderate Voluntary Relaxation Moderate Manual Muscle Testing Left 3 Manual Muscle Testing Right 3 Manual Muscle Testing Anterior 2 Manual Muscle Testing Posterior 4 Muscle Endurance (Seconds) 8 Number of Quick Contractions In 10 4 Seconds PT-OP-Q Treatments Start: 05/12/22 16:22 Freq: Status: Active Protocol: Document 07/16/22 15:23 AMB (Rec: 09/02/22 15:27 AMB [id number]) Therapeutic Exercises Sitting Exercises roll in/roll out Resistance red Reps/Minutes 10 Standing Exercises sit to stand Reps/Minutes 1x10 long hold Comments cue breath mini squats Standing Exercise Name with long hold Reps/Minutes 10 Other Exercises quadruped Other Exercise Name UE extension Reps/Minutes 2x10 Comments wiht pelvic floor PT-OP-T Assessment and Plan Start: 05/12/22 16:22 Freq: Status: Active Protocol: Document 07/16/22 13:34 AMB (Rec: 07/16/22 14:14 AMB [id number]) Physical Therapy Assessment Goals Pelvic floor strength Short Term Goal (STG) Sarah will contract her pelvic floor muscles for 10 seconds in standing. STG Duration MET Chcf Goal (LTG) Sarah will show improved pelvic floor strength by omer pelvic floor while moving from sit to stand. LTG Duration MET One Impairment Continence Short Term Goal (STG) Sarah will cough without leaking urine. STG Duration MET Chcf Goal (LTG) Sarah will move from sit to stand without leaking urine. LTG Duration MET Assessment Summary Assessment Nocturia is usually around 1x/ night. Overall Sarah feels ready for discharge. She can move from sit to stand without leaking and can cough without leaking. She is independent with her HEP and ready for discharge. Physical Therapy Plan Frequency and Duration Frequency of Treatment 1x/Week Duration of treatment (weeks) 10 Plan of Care Start Date 05/13/22 Plan of Care End Date 07/22/22 Therapeutic Interventions Therapeutic Interventions Home Exercise Program,Manual Therapy,Neuromuscular Re- education,Self-Care/Home Management,Therapeutic Activities,Therapeutic Exercises Modalities Biofeedback Next Visit Focus/Plan Next Note Type Treatment Note Next Visit Plan standing HEP progression
== END 2022-09-04 16:26 | disposition home or self-care (01) ==
LOC: PHYS 13:30
PROVIDERS: Absent Provider Family Medicine; Family Provider Family Medicine; PCP Family Medicine; Referring Provider Family Medicine; Visit Provider Family Medicine
DX: N39.46 Mixed incontinence (principal)
CPT/HCPCS: 97110; 97161

== ENCOUNTER → 2022-07-29 10:45 | Outpatient (CLI) | payer MEDICARE, OTHER, SELFPAY ==
--- NOTE | 2022-07-29 10:58 | DI.DEXA.S_ITS ---
Bone Density Report Name: ANGEL IRBY Age: 67 Sex: Female Ethnicity: White Date of : 1955 Indication: osteopenia; parental hip fracture; Referring Provider: LILY BARNEY D.O. Study: Bone densitometry was performed. Exam Date: July 29, 2022 Accession number: [id number] Bone Density: Region BMD T-score Z-score Classification AP Spine(L1-L4) 1.025 -0.2 1.8 Normal Femoral Neck (Left) 0.638 -1.9 -0.2 Osteopenia Total Hip (Left) 0.749 -1.6 -0.2 Osteopenia Femoral Neck (Right) 0.675 -1.6 0.1 Osteopenia Total Hip (Right) 0.764 -1.5 -0.1 Osteopenia Total Hip Mean 0.757 -1.6 -0.2 Osteopenia World Health Organization criteria for BMD impression classify patients as: Normal (T-score at or above -1.0), Osteopenia (T-score between -1.0 and -2.5), or Osteoporosis (T-score at or below -2.5). 10-year Fracture Risk(1): Major Osteoporotic Fracture 18% Hip Fracture 2.8% Reported Risk Factors: [place] (), Neck BMD=0.638, BMI=25.0, parental fracture (1) FRAX(R) Version 3.08. Fracture probability calculated for an untreated patient. Fracture probability may be lower if the patient has received treatment. Previous Exams: -- Region Exam Age BMD T-score BMD Change BMD Change Date g/cm2 vs Baseline vs Previous -- AP Spine (L1-L4) 07/29/2022 67 1.025 -0.2 -0.034 (-3.2%)# -0.034 (-3.2%)# 06/02/2018 63 1.059 0.1 Total Hip(Left) 07/29/2022 67 0.749 -1.6 -0.041 (-5.1%)# -0.041 (-5.1%)# 06/02/2018 63 0.790 -1.2 Total Hip(Right) 07/29/2022 67 0.764 -1.5 -0.025 (-3.2%)# -0.025 (-3.2%)# 06/02/2018 63 0.790 -1.2 -- *Denotes significance at 95% confidence level, LSC for AP Spine = 0.022 g/cm2, LSC for Total Hip = 0.027 g/cm2 # Denotes dissimilar scan types or analysis methods Impression: The patient has low bone mass, based on the Left Femoral Neck T-score. The patient has an estimated ten-year risk of hip fracture of 2.8% and an estimated ten-year risk of major fracture of 18%, based on the WHO FRAX algorithm. The patient has risk factors, including: parental hip fracture. No significant bone loss was observed. Discussion: BONE DENSITY IS LOW AT ONE OR MORE SKELETAL SITES. This patient's lowest T-score is low at one or more skeletal sites. It meets the World Health Organization's (WHO) criteria for ?low bone mass? (T-score between -1.0 and -2.5). The patient's 10-year risk of fracture as calculated by FRAX is less than the threshold where pharmacological therapy is recommended by the National Osteoporosis Foundation (NOF). However, all treatment decisions require clinical judgment and consideration of individual patient factors, including patient preferences, comorbidities, previous drug use, risk factors not captured in the FRAX model (e.g., frailty, falls, vitamin D deficiency, increased bone turnover, interval significant decline in bone density) and possible under or overestimation of fracture risk by FRAX. The patient should follow a healthful lifestyle (good nutrition with adequate calcium and vitamin D, and appropriate weight-bearing exercise). Follow-Up: Consider repeating this study in 2 to 3 years to reassess this patient's status, or sooner if there is some new clinical indication. Reported by: AMBER WILKINS M.D. on 07/29/2022 11:06:00 AM.
== END ==
PROVIDERS: Family Provider Family Medicine; PCP Family Medicine; Referring Provider Family Medicine; Visit Provider Family Medicine
DX: Z78.0 Asymptomatic menopausal state (principal); Z13.820 Encounter for screening for osteoporosis; M85.852 Other specified disorders of bone density and structure, left thigh; Z92.23 Personal history of estrogen therapy
CPT/HCPCS: 77080

== ENCOUNTER → 2022-09-19 08:59 | Outpatient (CLI) | payer MEDICARE, OTHER, SELFPAY ==
[2022-09-19 10:48] LABS: Free T3, Triiodothyronine Free 5.17 pg/mL (2.77-5.27); Free T4, Direct Thyroxine 1.19 ng/dL (0.78-2.19)
[2022-09-19 11:01] LABS: Thyroid Stimulating Hormone 1.12 uIU/mL (0.47-4.68)
[2022-09-19 11:05] LABS: Cancer Antigen 125 < 5.5 U/mL (0-35)
[2022-09-25 11:16] LABS: Percent Free Testosterone 1.71 % (0.50-2.80); Testosterone Free 0.94 ng/dL (0.10-0.85); Testosterone Total 54.7 ng/dL (7.0-40.0)
== END ==
PROVIDERS: Family Provider Family Medicine; PCP Family Medicine; Referring Provider Obstetrics & Gynecology; Visit Provider Obstetrics & Gynecology
DX: N83.201 Unspecified ovarian cyst, right side (principal); E03.9 Hypothyroidism, unspecified; R79.89 Other specified abnormal findings of blood chemistry; Z12.73 Encounter for screening for malignant neoplasm of ovary; R19.09 Other intra-abdominal and pelvic swelling, mass and lump
CPT/HCPCS: 36415; 84402; 84403; 84439; 84443; 84481; 86304

== ENCOUNTER → 2023-05-01 15:20 | Outpatient (CLI) | payer MEDICARE, OTHER, SELFPAY ==
--- NOTE | 2023-05-01 | DI.MG.S_ITS ---
BILATERAL DIGITAL SCREENING MAMMOGRAM 3D/2D WITH CAD: 05/01/2023 CLINICAL: Routine screening. Family history of breast cancer. Comparison is made to exams dated: 04/25/2022 mammogram, 03/19/2021 mammogram, and 03/15/2020 mammogram - [facility]. Both breasts are heterogeneously dense, which may obscure small masses (category c / 51-75% glandular tissue). Current study was also evaluated with a Computer Aided Detection (CAD) system. No significant masses, calcifications, or other findings are seen in either breast. There has been no significant interval change. IMPRESSION: NEGATIVE There is no mammographic evidence of malignancy. A 1 year screening mammogram is recommended. Based on the Tyrer Cuzick model (a risk assessment model) the patient's lifetime risk is 15.7% and her 10 year risk is 9.1%. According to the ACR, ACS, and NCCN guidelines, an annual breast MRI exam along with mammogram is recommended if the patient's lifetime risk is 20% or greater. This exam was interpreted at Station ID: [id number]. NOTE: For mammograms, a report in lay terms will be sent to the patient. Approximately 15% of breast malignancies will not be visualized mammographically. In the management of a palpable breast mass, a negative mammogram must not discourage biopsy of a clinically suspicious lesion. Electronically Signed By: Stella zabala/donn:05/01/2023 15:54:45 letter sent: Normal Exam ACR BI-RADS Category 1: Negative [id number]
== END ==
LOC: MAMMO 15:20
PROVIDERS: Family Provider Family Medicine; PCP Family Medicine; Referring Provider Family Medicine; Visit Provider Family Medicine
DX: Z12.31 Encounter for screening mammogram for malignant neoplasm of breast (principal); Z80.3 Family history of malignant neoplasm of breast; R92.333 Mammographic heterogeneous density, bilateral breasts
CPT/HCPCS: 77063; 77067

== ENCOUNTER → 2023-05-04 14:33 | Outpatient (CLI) | payer MEDICARE, OTHER, SELFPAY ==
[2023-05-04 17:17] LABS: Free T4, Direct Thyroxine 1.11 ng/dL (0.78-2.19)
== END ==
PROVIDERS: Family Provider Family Medicine; PCP Family Medicine; Referring Provider Family Medicine; Visit Provider Family Medicine
DX: E03.9 Hypothyroidism, unspecified (principal)
CPT/HCPCS: 36415; 84439; 84443; 84481

== ENCOUNTER 2023-11-10 09:06 | Day surgery (SDC) | payer MEDICARE, OTHER, SELFPAY ==
[2023-11-05 15:11] VITALS: BMI 25.1
--- NOTE | 2023-11-10 | PATH_ITS ---
[facility] Accession Number: [id number] No. of containers..01 Tissue . 01 Material submitted: . endometrium - ENDOMETRIAL POLYP AND CURETTINGS . 01 Diagnosis: Endometrial polyp, and curetting: - Benign inactive endometrium with fragments of polypoid endometrium with histologic features consistent with endometrial polyps with hemorrhage. - Fragment of benign thickened smooth muscles, might represent mucosal leiomyoma in the right imaging settings. - Negative for hyperplasia, atypia, or malignancy. TXN 11/12/2023 1313 Local . 01 Electronically signed: . Tawdana Johnson MD, Pathologist NPI- [id number] . 01 Gross description: . Received in formalin with two patient identifiers and endometrial polyp and curetting, is a red-brown polypoid soft tissue fragment (3.2 x 1.0 x 0.5 cm) admixed with lucas to red-brown soft tissue fragments (2.1 x 1.5 x 0.3 cm in aggregate). The presumed margin of the polypoid fragment is inked blue, and sectioning reveals a red-brown ,soft, unremarkable cut surface. Submitted entirely in A1-A3. ([id number]) /MRV 11/11/2023 1756 Local . 01 Pathologist provided ICD-10: N84.0 . 01 CPT . 474878 Specimen Comment: A courtesy copy of this report has been sent to [phone] Performed at: [address] [id number] MD Malcolm Patel MD Phone: [phone]
[2023-11-10] MEDS: LACTATED RINGERS 1,000 ML 42 ML IV (09:29)
[2023-11-10] MEDS: ACETAMINOPHEN 325 MG TABLET 975 MG PO (09:29)
[2023-11-10 09:39] VITALS: BP 113/68; PULSE 69; RESP 16; TEMP 36.9; O2SAT 98; BMI 25.0
--- NOTE | 2023-11-10 10:23 | PM.GYNHP.1 ---
History of Present Illness History of Present Illness Reason for admission: other (Endometrial hyperplasia, suspicious for endometrial polyp) Narrative: Sarah Nguyen is a 68 year old female 2 para 2 with increased thickening of the lining of the uterus despite progesterone use. Hyperechoic area suspicious for a polyp [facility] Medical History Sinus pressure Right ear pain Bilateral arm pain Situational anxiety Excessive daytime sleepiness Chronic pain of right elbow Chronic left shoulder pain Bilateral wrist pain Low testosterone level in female Mixed urge and stress incontinence Strain of gluteus medius of right lower extremity Bilateral knee pain Acute pain of left shoulder Iliotibial band syndrome, right leg Breast lump on left side at 3 o'clock position Chronic pain in right shoulder Upper extremity somatic dysfunction Subconjunctival hemorrhage of left eye Somatic dysfunction of lower extremity Iliotibial band syndrome of left side Acute pain of left hip Body posture problem Segmental and somatic dysfunction of rib cage Segmental and somatic dysfunction of abdomen and other regions Sacral region somatic dysfunction Pelvic somatic dysfunction Lumbar region somatic dysfunction Thoracic region somatic dysfunction Cervical somatic dysfunction Cranial somatic dysfunction Yawning Tension headache Chronic neck pain Eczema Actinic keratosis (~1999) Headache Shoulder pain Osteopenia Chronic back pain Mumps Measles Chicken pox Vertigo (~2019) Recurrent sinusitis (~2009) Hearing loss Genital warts Abnormal Pap smear of cervix History of urinary incontinence (~1992) Hemorrhoid (~1989) Low testosterone Facet arthropathy, lumbosacral Surgical History Hx of oral surgery (~02/2022) History of oral surgery (~2009) Status post loop electrosurgical excision procedure (LEEP) of cervix Family History Brother Multiple sclerosis Father Idiopathic neuropathy Mental health problem Mother Multiple sclerosis COPD (chronic obstructive pulmonary disease) Breast cancer History of cervical cancer History of skin cancer History of poliomyelitis Sister Age: 71 Melanoma Sister Age: 62 Multiple sclerosis Grandfather No problems noted. Social History household members: spouse Smoking Status: Never smoker second hand exposure: Yes (as a child I was, but not now. My mother was a heavy smoker.) alcohol intake: never substance use type: does not use Meds Home Medications and Allergies Home Medications Medication Instructions Recorded Confirmed Type aspirin 81 mg tablet,delayed 81 mg PO DAILY 11/16/18 11/10/23 History release (Adult Low Dose Aspirin) cholecalciferol (vitamin D3) 125 5,000 unit PO DAILY 11/16/18 11/10/23 History mcg (5,000 unit) capsule progesterone micronized 200 mg 200 mg PO BEDTIME 12/17/20 11/10/23 History capsule mecobalamin (vitamin B12) 1,000 2,000 mcg PO DAILY 06/23/22 11/10/23 History mcg chewable tablet Testosterone compounded cream #1 ea 03/20/23 11/04/23 Rx magnesium 450 mg PO DAILY 04/21/23 11/10/23 History estradiol 0.1 mg/24 hr semiweekly 1 patch transdermal 2XW #48 ea 05/29/23 11/10/23 Rx transdermal patch liothyronine 5 mcg tablet 5 mcg PO DAILY #90 tabs 06/16/23 11/10/23 Rx vitamin A palmitate 25,000 unit PO DAILY PRN 08/28/23 11/04/23 History zinc acetate 90 mg PO .PRN 08/28/23 11/04/23 History levothyroxine 50 mcg tablet 50 mcg PO DAILY #90 tabs 09/04/23 11/10/23 Rx Allergies Allergy/AdvReac Type Severity Reaction Status Date / Time No Known Drug Allergies Allergy Verified 11/10/23 09:22 Exam Vital Signs (past 8 hours): - 11/10/23 09:39 Temperature 98.5 F Pulse Rate 69 Respiratory Rate 16 Blood Pressure 113/68 Pulse Oximetry 98 Oxygen Delivery Method Room Air Oxygen Delivery Method Room Air Narrative Exam Narrative: HEENT: No thyromegaly, no anterior cervical or supraclavicular lymphadenopathy. Lungs:Clear to auscultation bilaterally, no wheezes. Cardiovascular: Regular rate and rhythm, no murmurs, rubs, or gallops. Abdomen: No scars. No hepatosplenomegaly. No masses palpable. External genitalia: Normal Vagina: Normal Cervix: Normal Bimanual exam: 6 Week size uterus. Mobile. Extremities: No edema Assessment & Plan Assessment & Plan narrative: Assessment: 68-year-old 2 para 2 with a hyperechoic thickened endometrium, suspicious for a polyp Increased thickening of the lining of the uterus despite progesterone use Plan: D&C hysteroscopy with polypectomy The risks, benefits, and alternatives to the procedure were explained to the patient. The risks including bleeding, infection, and uterine perforation. She understands these risks and agrees to proceed. A full par Q was held and consent form was signed. Time-Based Coding :: [TOTAL MINUTES] spent with patient and on the chart (including review of chart, obtaining history, exam, reviewing outside data, placing orders, documenting exam and treatment plan, and counseling patient) on [DATE].
--- NOTE | 2023-11-10 10:25 | PM.PREOP ---
Pre-operative Note Interval Note History & Physical reviewed/Exam performed by Physician: Yes Changes to H&P: No H&P completed within 30 days and has changed as indicated here:: 11/10/23
[2023-11-10] MEDS: SCOPOLAMINE 1 PATCH TOP (10:34)
--- NOTE | 2023-11-10 10:48 | SUR.OPER ---
Lithotomy on padded OR bed, head on pillow, arms secured on padded arm boards at <90 degrees abduction. Legs secured in padded yellow fins stirrups.
--- NOTE | 2023-11-10 10:53 | SUR.OPER ---
Lithotomy on padded OR bed, head on pillow, arms secured on padded arm boards at <90 degrees abduction. Legs secured in padded yellow fins stirrups.
--- NOTE | 2023-11-10 11:07 | PM.GYNOP.1 ---
Operative Date/Time/Diagnoses Date of procedure: 11/10/23 Time of procedure: 11:07 Pre-op diagnosis: Increasing thickening of the endometrium, despite Progesterone therapy Post-op diagnosis: same Procedure & Clinicians Procedure: Procedures Operation Date: 11/10/23 10:15 <No data on this case meets the specified criteria> Indications: 68 year old with increasing endometial thickening on ultrasound despite progesterone therapy Surgeon: Ailyn Freitas Anesthesia Type: General (LMA) Operative Notes Findings: 6 wk size anteverted uterus Both fallopian tube ostia observed Large endocervical polyp Moderate size endometrial polyp arising from left mid body of the uterus Closure Type: not applicable Specimen(s): endometrial curettings, endometrial polyp and other (endocervical polyp) Estimated blood loss (mL): 5 Blood products transfused: none Procedure in detail: After informed consent was obtained, the patient was taken to the operating room where she was placed in the dorsal supine position. After adequate LMA general anesthesia was achieved, she was placed in the dorsal lithotomy position, and prepped and draped in the usual sterile fashion. A time-out was performed. A bivalve speculum was placed into the vagina. There was a large friable polyp coming from the cervix. This was grasped and removed with polyp forceps. The cervix was dilated until the hysteroscope could pass easily into the endometrial cavity. Using the MyoSure reach, a second polyp in the endometrium was resected. Coming back into the endocervical canal with the MyoSure reach, the base of the endocervical polyp was also resected. Sharp curettage was performed yielding a moderate amount of endometrial curettings. The instruments were removed from the uterus. The single-tooth tenaculum was removed from the anterior lip of the cervix. The bivalve speculum was removed from the vagina. Sponge, lap, and instrument counts were correct x2. The patient tolerated the procedure well, and was taken to PACU in stable condition. Complications: none Post-operative Condition: stable Disposition: PACU Plan for aftercare: Home after recovery
[2023-11-10 11:16] VITALS: BP 99/52; PULSE 68; RESP 16; TEMP 36.7; O2SAT 97
[2023-11-10 11:22] VITALS: BP 99/56; PULSE 66; RESP 12; TEMP 36.7; O2SAT 98
[2023-11-10 11:27] VITALS: BP 104/53; PULSE 70; RESP 19; TEMP 36.7; O2SAT 99
[2023-11-10 11:35] VITALS: BP 111/62; PULSE 78; RESP 18; TEMP 36.7; O2SAT 98
== END 2023-11-10 11:50 | disposition home or self-care (01) ==
PROVIDERS: Family Provider Family Medicine; PCP Family Medicine; Referring Provider Obstetrics & Gynecology; Visit Provider Obstetrics & Gynecology
PROC: 0UDB8ZZ Extraction of Endometrium, Via Natural or Artificial Opening Endoscopic (ICD-10-PCS; CPT 58558; principal; 2023-11-10 10:15)
DX: R93.89 Abnormal findings on diagnostic imaging of other specified body structures (principal); N84.0 Polyp of corpus uteri
CPT/HCPCS: 58558; J1100; J1885; J2250; J2405; J3010

== ENCOUNTER → 2024-01-28 07:14 | Outpatient (CLI) | payer MEDICARE, OTHER, SELFPAY ==
--- NOTE | 2024-01-28 07:16 | DI.US.S_ITS ---
PROCEDURE: US PELVIC COMPLETE INDICATIONS: PMB TECHNIQUE: Real-time scanning was performed of the pelvic organs, with image documentation. Additional endovaginal scanning was necessary due to incomplete visualization of the adnexal and endometrial structures by transabdominal scanning. COMPARISON: [facility], US, US PELVIC COMPLETE, 11/04/2023, 11:15. FINDINGS: Uterus: Endometrium measures 15 mm. Uterus measures 9.5 x 6.7 x 6.4 cm. Endometrium is heterogeneous. Right anterior subserosal fibroid measures 2.5 x 2.3 cm. Ovaries: Not seen Other: None IMPRESSION: Thickened heterogeneous endometrium, consider biopsy in the setting of postmenopausal bleeding. Dictated by: Dwight Delgado M.D. on 01/28/2024 at 10:48 Approved by: Dwight Delgado M.D. on 01/28/2024 at 10:53
== END ==
LOC: US 07:15
PROVIDERS: Family Provider Family Medicine; PCP Family Medicine; Referring Provider Obstetrics & Gynecology; Visit Provider Obstetrics & Gynecology
DX: N85.00 Endometrial hyperplasia, unspecified (principal); N95.0 Postmenopausal bleeding; D25.2 Subserosal leiomyoma of uterus
CPT/HCPCS: 76830; 76856

== ENCOUNTER → 2024-02-01 15:22 | Outpatient (CLI) | payer MEDICARE, OTHER, SELFPAY ==
[2024-02-01 18:01] LABS: Free T3, Triiodothyronine Free 3.29 pg/mL (2.77-5.27); Free T4, Direct Thyroxine 1.06 ng/dL (0.78-2.19); T4 Total Thyroxine 7.56 ug/dL (5.5-11.0)
[2024-02-01 18:15] LABS: Thyroid Stimulating Hormone 0.607 uIU/mL (0.47-4.68)
[2024-02-01 19:08] LABS: Estradiol, Total 82.1 pg/mL
[2024-02-02 07:08] LABS: Triiodothyronine T3 Total 80 ng/dL (71-180)
== END ==
PROVIDERS: Family Provider Family Medicine; PCP Family Medicine; Referring Provider Obstetrics & Gynecology; Visit Provider Obstetrics & Gynecology
DX: N95.0 Postmenopausal bleeding (principal)
CPT/HCPCS: 82670; 84144; 84402; 84403; 84436; 84439; 84443; 84480; 84481

== ENCOUNTER → 2024-08-04 16:34 | Outpatient (CLI) | payer MEDICARE, OTHER, SELFPAY ==
--- NOTE | 2024-08-04 16:39 | DI.MG.S_ITS ---
MM screening mammo BI: 08/04/2024. BI-RADS: 1 CLINICAL: 69-year old female for bilateral screening mammogram. Tyrer-Cuzick lifetime risk of 12.0%. Current reported family history of breast cancer: mother. PRIOR EXAMS 05/01/2023, 04/25/2022, 12/02/2021, 03/19/2021, 03/15/2020, 01/20/2019, 06/06/2017, 05/13/2016, 08/04/2014. MAMMOGRAPHY TECHNIQUE: 2D and 3D (tomosynthesis) digital mammographic views obtained, with additional images as needed for full coverage. Current study was also evaluated with a Computer Aided Detection (CAD) system. DENSITY C. The breasts are heterogeneously dense, which may obscure small masses. MAMMOGRAPHY FINDINGS Bilateral: No suspicious mass, asymmetry, microcalcification, or other abnormality seen. IMPRESSION: * No evidence of malignancy. RECOMMENDATIONS Bilateral * Annual screening mammography. OVERALL ASSESSMENT CATEGORY BI-RADS-1: Negative. The [employer] recommends annual screening mammography beginning at age 40 for women with average risk of breast cancer. ELECTRONICALLY SIGNED: Sebastián Chiang M.D. on 08/07/2024 at 09:22:54 PM PT Interpreting Station ID: [id number]
== END ==
PROVIDERS: Family Provider Family Medicine; PCP Family Medicine; Referring Provider Family Medicine; Visit Provider Family Medicine
DX: Z12.31 Encounter for screening mammogram for malignant neoplasm of breast (principal); R92.333 Mammographic heterogeneous density, bilateral breasts; Z80.3 Family history of malignant neoplasm of breast
CPT/HCPCS: 77063; 77067

== ENCOUNTER → 2024-12-08 08:24 | Outpatient (CLI) | payer MEDICARE, OTHER, SELFPAY ==
[2024-12-08 09:44] LABS: Add Manual Diff / Slide Review NO; Hematocrit 38.2 % (36-46); Hemoglobin 12.8 g/dL (12.0-16.0); Lymphocytes Absolute Auto 1300 /uL (1100-4500); Mean Corpuscular HGB Conc 33.5 % (30-36); Mean Corpuscular Hemoglobin 32.8 PG (26-34); Mean Corpuscular Volume 98.0 fL (80-100); Platelet Count 166 X10^3/uL (150-400)
[2024-12-08 10:12] LABS: Alanine Aminotransferase 13 IU/L (<35); Albumin 3.8 g/dL (3.5-5.0); Albumin Globulin Ratio 1.2 (1.0-2.8); Alkaline Phosphatase 43 U/L (38-126); Blood Urea Nitrogen 19 mg/dL (7-17); Calcium 8.4 mg/dL (8.4-10.2); Carbon Dioxide 24 mmol/L (22-32); Chloride 108 mmol/L (98-107); Cholesterol 131 mg/dL (140-199); Estimated Glomerular Filt Rate > 60 mL/min (>60); Globulin 3.1 g/dL (1.7-4.1); Glucose 86 mg/dL (70-99); HDL Cholesterol 47 mg/dL (40-60); HEMOLYSIS < 15 (0-50); Potassium 4.3 mmol/L (3.4-5.1); Sodium 138 mmol/L (137-145); Total Protein 6.9 g/dL (6.3-8.2); Triglycerides 73 mg/dL (35-150)
[2024-12-08 10:40] LABS: TSH w/ Reflex to FT4 0.63 uIU/mL (0.47-4.68)
[2024-12-14 06:36] LABS: Percent Free Testosterone 1.55 % (0.50-2.80)
== END ==
PROVIDERS: Family Provider Family Medicine; PCP Family Medicine; Referring Provider Family Medicine; Visit Provider Family Medicine
DX: Z00.00 Encounter for general adult medical examination without abnormal findings (principal); E03.9 Hypothyroidism, unspecified; R79.89 Other specified abnormal findings of blood chemistry; R42 Dizziness and giddiness
CPT/HCPCS: 36415; 80053; 80061; 84402; 84403; 84443; 85025